=== PATIENT | female | born 1995 | race Caucasian/White ===

== ENCOUNTER 2016-08-13 14:23 | Emergency (ER) | payer MEDICAID, OTHER ==
[2016-08-13 16:22] VITALS: BP 124/87
[2016-08-13 17:08] LABS: Urine Bilirubin Negative (Negative); Urine Glucose Negative (Negative); Urine Nitrite Negative (Negative)
--- NOTE | 2016-08-13 18:49 | ED ---
Etienne Brown Matthew, scribed for Teodoro Metzger MD on 08/13/16 at 1643 . Influenza-Like Illness - HPI Summary HPI Summary: A 21 y/o female presents to the ED with fever since 08/10 that has resolved with rest and fluids. Her fever reached a height of 103F and her temperature is currently 99.0. Her last recorded fever was yesterday. Associated symptoms include sore throat, rhinorrhea, and productive cough. The patient denies nausea , vomiting, abdominal pain, abdominal cramping, vaginal bleeding, and vaginal discharge. The patient was advised by Dr. Newell's office to be evaluate at the ED, because of her fever. PMHx includes asthma and vasovagal syncope. The patient does not know her FHx. A2. She also states that baby has been moving normally. - History of Current Complaint Chief Complaint: EDFever Time Seen by Provider: 08/13/16 16:13 Hx Obtained From: Patient Onset/Duration: Lasting Days, Still Present - resolving Severity: Mild Associated Signs & Symptoms: T Max - 103F, Cough - productive, Sore Throat, Nasal Congestion - Allergy/Home Medications Allergies/Adverse Reactions: Allergies Allergy/AdvReac Type Severity Reaction Status Date / Time Bee Pollen Allergy Anaphylatic Verified 08/13/16 16:51 Shock PMH/Surg Hx/FS Hx/Imm Hx Endocrine/Hematology History: Denies: Hx Diabetes Respiratory History: Reports: Hx Asthma Infectious Disease History: No Infectious Disease History: Denies: Traveled Outside the [place] in Last 30 Days - Family History Family History: The patient does know her family Hx, because her father was adopted and she's estranged from her mother - Social History Alcohol Use: None Hx Substance Use: No Substance Use Type: Reports: None Hx Tobacco Use: Yes Smoking Status (MU): Former Smoker Review of Systems Constitutional: Negative Negative: Fever Eyes: Negative Positive: Sore Throat, Nasal Discharge Cardiovascular: Negative Positive: Cough - productive Gastrointestinal: Negative Negative: Abdominal Pain, Vomiting, Nausea Genitourinary: Negative Musculoskeletal: Negative Skin: Negative Neurological: Negative Psychological: Normal All Other Systems Reviewed And Are Negative: Yes Physical Exam - Summary Physical Exam Summary: Vital signs: Reviewed Gen.: Patient is a well-developed and nourished female in no acute distress. Patient is lying comfortably on the stretcher. Head: Normacephalic and atraumatic Eyes: PERRLA, EOMI x2. Ears: Right and Left ear canal and TM WNL Nose and mouth: positive nasal mucosa erythema, No pharyngeal erythema or exudates. Neck: Supple, no lymphadenopathy, no JVD Lungs: CTA B/L CVS: S1 & S2 present. No murmurs appreciated. ABDOMEN: Soft, non-tender. Positive distention secondary to her . No rebound no guarding, and no masses palpated. Bowel sounds are normal. EXTREMITIES: FROM in all major joints, no edema, no cyanosis or clubbing. NEURO: Alert and oriented x 3. No acute neurological deficits. Speech is normal and follows commands. SKIN: Dry and warm Triage Information Reviewed: Yes Vital Signs On Initial Exam: Initial Vitals Temp Pulse Resp BP Pulse Ox 99.9 F 105 20 128/72 100 08/13/16 14:36 08/13/16 14:36 08/13/16 14:36 08/13/16 14:36 08/13/16 14:36 Vital Signs Reviewed: Yes Diagnostics - Vital Signs Vital Signs Temp Pulse Resp BP Pulse Ox 08/13/16 16:14 98.4 F 100 16 124/87 98 08/13/16 15:24 99.6 F 105 20 122/78 100 08/13/16 14:36 99.9 F 105 20 128/72 100 - Laboratory Lab Statement: Any lab studies that have been ordered have been reviewed, and results considered in the medical decision making process. Flu Symptom Course/Dx - Course Assessment/Plan: A 21 y/o female presents to the ED with fever since 08/10 that has resolved with rest and fluids. Her fever reached a height of 103F and her temperature is currently 99.0. Her last recorded fever was yesterday. Associated symptoms include sore throat, rhinorrhea, and productive cough. The patient denies nausea, vomiting, abdominal pain, abdominal cramping, vaginal bleeding, and vaginal discharge. The patient was advised by Dr. Newell's office to be evaluate at the ED, because of her fever. PMHx includes asthma and vasovagal syncope. The patient does not know her FHx. A2. She also states that baby has been moving normally. Urinalysis is negative. Influenza A is negative. Influenza B positive. STREP is negative. Therefore, this is probably the reason the patient has been having fevers. However, the patient reports that she is feeling much improved, her last fever was a day ago, and she has no other complaints. She feels that the baby is moving as usual. The HR is 157 bpm. Since the symptoms are more than 5 days and shes feeling better the patient will only benefit from better hydration. She will follow-up with her PCP and SCREEN PR[employer] Dr. Newell. I discussed all the findings and test results with the patient. Patient was instructed to return to the emergency room immediately if any of the symptoms return or worsens. Plan of care was discussed with the patient and understands and agrees. All questions were answered at patient satisfaction. There were no further complaints or concerns. Lung exam before discharge: CTA B/L. Good air exchange. No wheezing or crackles heard. CVS: S1 and S2 present. No murmurs appreciated. Patient is alert and oriented x 3. Patient is hemodynamically stable. Patient will be discharged home with follow up PCP in the next 2-3 days - Diagnoses Differential Diagnosis/HQI/PQRI: Positive: Influenza, Upper Respiratory Infection Provider Diagnoses: Influenza B Discharge - Discharge Plan Condition: Stable Disposition: HOME Patient Education Materials: Influenza (ED) Referrals: Maru Myers CNM [Primary Care Provider] - 3 Days Adolfo Newell MD [Medical Doctor] - 3 Days Additional Instructions: Please follow-up with your primary care physician and Dr. Newell. Please hydrate well. The documentation as recorded by the Etienne shah Matthew accurately reflects the service I personally performed and the decisions made by me, Teodoro Metzger MD.
== END 2016-08-13 18:01 | disposition home or self-care (01) ==
LOC: ED 14:23
DX: O98.519 Other viral diseases complicating pregnancy, unspecified trimester (principal); J10.1 Influenza due to other identified influenza virus with other respiratory manifestations; J45.909 Unspecified asthma, uncomplicated
CPT/HCPCS: 81003; 87502; 87651; 99282

== ENCOUNTER 2016-11-05 01:04 | Inpatient (IN) | payer OTHER ==
[2016-11-05] MEDS ORDERED: Witch Hazel PAD* JAR TOPICAL PRN (02:39)
[2016-11-05] MEDS ORDERED: Glycerin ADULT SUPP PR PRN (02:39)
[2016-11-05] MEDS ORDERED: OXYTOCIN* 10 UNITS/ML 1 ML VIAL IM ONE (02:39)
[2016-11-05] MEDS ORDERED: Acetaminophen TAB* 325 MG PO PRN (02:39)
[2016-11-05] MEDS ORDERED: Dibucaine 1% 28.35 GM TUBE PR PRN (02:39)
[2016-11-05] MEDS: Docusate CAP* 100 MG PO SCH ×3 (08:27→22:02)
[2016-11-05] MEDS: Ibuprofen TAB* 600 MG PO PRN ×3 (08:27→22:02)
[2016-11-05] MEDS ORDERED: Simethicone CHEW TAB* 80 MG PO SCH (08:30)
[2016-11-05] MEDS ORDERED: Varicella Virus Vaccine Live* 0.5 ML VIAL SUBCUT ONE (09:00)
[2016-11-05] MEDS ORDERED: RHO D Immune Globulin (HUMAN)* 300 MCG = 1,500 I.U. INJ IM ONE (15:55)
[2016-11-06 08:59] LABS: Hematocrit 33 % (35-47); Hemoglobin 11.4 g/dl (12.0-16.0); Mean Corpuscular HGB Conc 34 g/dl (31-36); Mean Corpuscular Hemoglobin 31 pg (27-31); Mean Corpuscular Volume 91 fL (80-97); Mean Platelet Volume 8 um3 (7.4-10.4); Red Blood Count 3.67 10^6/ul (4.0-5.4); Red Cell Distribution Width 15 % (10.5-15); White Blood Count 12.6 10^3/ul (3.5-10.8)
[2016-11-06] MEDS ORDERED: Ferrous Gluconate TAB* 324 MG TAB PO SCH (09:00)
[2016-11-06] MEDS: Docusate CAP* 100 MG PO SCH ×2 (09:19→16:41)
--- NOTE | 2016-11-06 14:29 | PTEDU ---
Patient Name: KILEY CASTREJON KILEY CASTREJON selected video: Follow Me Mum: [employer] to view on 11/07/19 17 at 2:29:06 PM from [id number]
[2016-11-07] MEDS: Docusate CAP* 100 MG PO SCH (02:25)
[2016-11-07 07:48] VITALS: BP 128/66
[2016-11-07] MEDS: Ibuprofen TAB* 600 MG PO PRN (08:01)
== END 2016-11-07 12:17 | disposition home or self-care (01) | DRG 560 ==
LOC: MCHOBOUT 01:04 → MCHOB 01:20
PROVIDERS: ADMIT Midwife; ATTEND Midwife
PROC: 10E0XZZ Delivery of Products of Conception, External Approach (ICD-10-PCS; principal; 2016-11-05)
PROC: 10907ZC Drainage of Amniotic Fluid, Therapeutic from Products of Conception, Via Natural or Artificial Opening (ICD-10-PCS; 2016-11-05)
DX: O42.02 Full-term premature rupture of membranes, onset of labor within 24 hours of rupture (principal); O99.344 Other mental disorders complicating childbirth; F32.9 Major depressive disorder, single episode, unspecified; F43.10 Post-traumatic stress disorder, unspecified; O26.893 Other specified pregnancy related conditions, third trimester; Z67.91 Unspecified blood type, Rh negative; Z3A.38 38 weeks gestation of pregnancy; Z37.0 Single live birth
CPT/HCPCS: 36415; 85025; 85461; 86900; 86901; A9270-GY; J2590; J2790

== ENCOUNTER 2017-12-14 13:53 | Emergency (ER) | payer OTHER ==
[2017-12-14 13:58] VITALS: BP 123/79
== END 2017-12-14 17:28 | disposition left against medical advice (07) ==
LOC: ED 13:53
DX: R10.2 Pelvic and perineal pain (principal); Z53.21 Procedure and treatment not carried out due to patient leaving prior to being seen by health care provider

== ENCOUNTER 2018-04-03 11:42 | Inpatient (IN) | payer OTHER ==
--- NOTE | 2018-04-03 11:55 | ED ---
Psychiatric Complaint - HPI Summary HPI Summary: Pt is a 22 year old F presenting to the ED brought in by EMS with suicidal thoughts. The past couple of days her depression has been worse than normal and she was just thinking about ending the way she was feeling. She was agitated and irritable being in public, thought about walking into traffic, and called 911 instead. She has a hx of suicide and depression in her family, personal hx of suicidal attempts and anxiety, does not use alcohol, occasionally uses marijuana and cigars. The pt does not sleep well or eat well, is not on any medicine and her last suicide attempt was 2014. - History Of Current Complaint Time Seen by Provider: 04/03/18 11:43 Hx Obtained From: Patient Onset/Duration: Gradual Onset, Lasting Days, Still Present Timing: Constant Severity Initially: Moderate Severity Currently: Moderate Character: Depressed, Anxious, Frustrated Aggravating Factor(s): Recent Stress Alleviating Factor(s): Nothing Associated Signs And Symptoms: Positive: Sleep Disturbance, Appetite Change Related History: Positive For: Prior Psychiatric Issues Has Suicidal: Reports: Thoughts, Has Prior Attempt(s) - Allergies/Home Medications Allergies/Adverse Reactions: Allergies Allergy/AdvReac Type Severity Reaction Status Date / Time bee venom protein (honey bee) Allergy Anaphylatic Verified 12/14/17 13:59 Shock PMH/Surg Hx/FS Hx/Imm Hx Previously Healthy: No Endocrine/Hematology History: Denies: Hx Diabetes Respiratory History: Reports: Hx Asthma Psychiatric History: Reports: Hx Anxiety, Hx Depression, Hx Suicide Attempt - attempted suicide 6mths with first child. Child not in custody., Other Psychiatric Issues/Disorders - PTSD - Family History Known Family History: Positive: Other - suicide, depression - Social History Alcohol Use: None Hx Substance Use: No Substance Use Type: Reports: None Hx Tobacco Use: Yes Smoking Status (MU): Former Smoker Have You Smoked in the Last Year: No Review of Systems Negative: Fever Positive: Anxious, Depressed All Other Systems Reviewed And Are Negative: Yes Physical Exam - Summary Physical Exam Summary: VITAL SIGNS: Reviewed. GENERAL: Patient is a well-developed and nourished female who is lying comfortable in the stretcher. Patient is not in any acute respiratory distress. HEAD AND FACE: No signs of trauma. No ecchymosis, hematomas or skull depressions. No sinus tenderness. EYES: PERRLA, EOMI x 2, No injected conjunctiva, no nystagmus. EARS: Hearing grossly intact. Ear canals and tympanic membranes are within normal limits. MOUTH: Oropharynx within normal limits. NECK: Supple, trachea is midline, no adenopathy, no JVD, no carotid bruit, no c- spine tenderness, neck with full ROM. CHEST: Symmetric, no tenderness at palpation LUNGS: Clear to auscultation bilaterally. No wheezing or crackles. CVS: Regular rate and rhythm, S1 and S2 present, no murmurs or gallops appreciated. ABDOMEN: Soft, non-tender. No signs of distention. No rebound no guarding, and no masses palpated. Bowel sounds are normal. EXTREMITIES: FROM in all major joints, no edema, no cyanosis or clubbing. NEURO: Alert and oriented x 3. No acute neurological deficits. Speech is normal and follows commands. SKIN: Dry and warm Triage Information Reviewed: Yes Vital Signs Reviewed: Yes Diagnostics - Laboratory Result Diagrams: 04/03/18 12:49 04/03/18 12:49 Lab Statement: Any lab studies that have been ordered have been reviewed, and results considered in the medical decision making process. Course/Dx - Course Assessment/Plan: Pt is a 22 year old F presenting to the ED brought in by EMS with suicidal thoughts. The past couple of days her depression has been worse than normal and she was just thinking about ending the way she was feeling. She was agitated and irritable being in public, thought about walking into traffic, and called 911 instead. She has a hx of suicide and depression in her family, personal hx of suicidal attempts and anxiety, does not use alcohol, occasionally uses marijuana and cigars. The pt does not sleep well or eat well, is not on any medicine and her last suicide attempt was 2014. Blood work w/o a significant abnormality. She is medically cleared. She is awaiting for a MHE. Patient is hemodynamically stable and A+O x 3. Dr. Owens assessed the patient and he recommends admission to his services. Diagnosis of depressive disorder. - Differential Dx/Clinical Impression Provider Diagnosis: Depressive disorder Discharge - Sign-Out/Discharge Documenting (check all that apply): Patient Departure - admit - Discharge Plan Condition: Stable - Billing Disposition and Condition Condition: STABLE Disposition: Admitted to [facility] - Attestation Statements Document Initiated by Scribe: Yes Documenting Scribe: Joie Bryant Provider For Whom Scribe is Documenting (Include Credential): Teodoro Metzger MD. Scribe Attestation: IJoie, scribed for Teodoro Metzger MD. on 04/04/18 at 0738. Scribe Documentation Reviewed: Yes Provider Attestation: The documentation as recorded by the meetaibe, Joie Bryant accurately reflects the service I personally performed and the decisions made by me, Teodoro Metzger MD. Status of Scribe Document: Viewed Consult Consult: [id number] - The pt's condition was reviewed and she will be admitted to [facility] under Dr. Owens with a diagnosis of depressive disorder.
[2018-04-03 13:01] LABS: ABS Basophils 0 10^3/ul (0-0.2); ABS Eosinophils 0.2 10^3/ul (0-0.6); ABS Lymphocytes 1.5 10^3/ul (1.0-4.8); ABS Monocytes 0.4 10^3/ul (0-0.8); ABS Neutrophils 2.8 10^3/ul (1.5-7.7); ABS Nucleated RBC 0 10^3/ul; Hematocrit 38 % (35-47); Lymphocyte % 30.1 %; Mean Corpuscular HGB Conc 34 g/dl (31-36); Mean Corpuscular Hemoglobin 29 pg (27-31); Mean Corpuscular Volume 86 fL (80-97); Mean Platelet Volume 8.2 fL (7.4-10.4); Nucleated Red Blood Cells % 0; Platelet Count 199 10^3/ul (150-450); Red Blood Count 4.47 10^6/ul (4.00-5.40); Red Cell Distribution Width 13 % (10.5-15)
[2018-04-03 13:19] LABS: EGFR Non-African American 78.6 (>60)
[2018-04-03 13:35] LABS: Urine Appearance Cloudy; Urine Blood 3+ (Negative); Urine Color Amber; Urine Ketones Trace (Negative); Urine Protein 2+(100 mg/dL) (Negative); Urine Red Blood Cell 3+(>10/hpf) (Absent); Urine Specific Gravity 1.021 (1.010-1.030); Urine Urobilinogen Negative (Negative); Urine White Blood Cell 3+(>20/hpf) (Absent)
[2018-04-04] MEDS ORDERED: Al Hydrox/Mg Hydrox/Simet LIQ* 30 ML UDC PO PRN (10:10)
[2018-04-04] MEDS ORDERED: Acetaminophen TAB* 325 MG PO PRN (10:10)
[2018-04-04] MEDS ORDERED: cloNIDine TAB* 0.1 MG PO SCH (21:00)
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
[2018-04-05] MEDS: Vitamin THERAPEUTIC TAB PO SCH (08:24)
[2018-04-05] MEDS: FLUoxetine CAP* 20 MG PO SCH (08:24)
[2018-04-05] MEDS ORDERED: Sertraline* 50 MG TAB PO SCH (09:00)
[2018-04-05] MEDS ORDERED: Mouth Piece, Nicotine* 1 EACH CARTRIDGE INH ONE (12:00)
[2018-04-06] MEDS: LORazepam TAB(*) 0.5 MG PO PRN ×2 (02:11→17:57)
[2018-04-06] MEDS: Vitamin THERAPEUTIC TAB PO SCH (08:16)
[2018-04-06] MEDS: FLUoxetine CAP* 20 MG PO SCH (08:16)
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
[2018-04-06] MEDS ORDERED: diPHENhydraMINE PO* 50 MG ONE (23:04)
[2018-04-07] MEDS: Vitamin THERAPEUTIC TAB PO SCH (10:05)
[2018-04-07] MEDS: FLUoxetine CAP* 20 MG PO SCH (10:05)
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
[2018-04-07] MEDS: diPHENhydraMINE PO* 50 MG PO PRN (21:00)
[2018-04-08] MEDS: Vitamin THERAPEUTIC TAB PO SCH (09:05)
[2018-04-08] MEDS: FLUoxetine CAP* 20 MG PO SCH (09:05)
[2018-04-08] MEDS: LORazepam TAB(*) 0.5 MG PO PRN ×2 (09:05→20:36)
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
[2018-04-09] MEDS: FLUoxetine CAP* 20 MG PO SCH (09:07)
[2018-04-09] MEDS: Vitamin THERAPEUTIC TAB PO SCH (09:07)
[2018-04-09] MEDS: Nicotine Inhaler* 10 MG AMP INH PRN (20:01)
[2018-04-09] MEDS: LORazepam TAB(*) 0.5 MG PO PRN (20:22)
[2018-04-10] MEDS: LORazepam TAB(*) 0.5 MG PO PRN ×3 (02:35→19:54)
[2018-04-10] MEDS: Vitamin THERAPEUTIC TAB PO SCH (08:25)
[2018-04-10] MEDS: FLUoxetine CAP* 20 MG PO SCH (08:25)
[2018-04-10] MEDS: Nicotine Inhaler* 10 MG AMP INH PRN ×2 (12:52→16:19)
--- NOTE | 2018-04-10 15:04 | PN ---
Subjective - Subjective Date of Service: 04/10/18 Subjective: Met with Kiley who was found in [place] playing board games with peers. Kiley reports feeling "great" happy that she is being discharged sooner. States that she hopes for discharge early in the week but knows that housing needs to be in place. She is not reporting any suicidal ideation. States that she has maxed out on groups and doesn't feel that any more group therapy will help, as she is able to utilize coping skills effective. Mcgehee that the Prozac was making her feel calmer, reports feeling nauseous at times but states it is unrelated to Prozac. She feels that this is due to anxiety, which causes her nausea. She is not concerned about this. Although housing is still up in the air, she is not concerned and feels that she has many supports for finding housing, as well as, feels comforted that she has "outside supports to help me transition." Objective - Appearance Appearance: Well Developed/Nourished, Healthy Appearing Dysmorphic Features: No Hygiene: Normal Grooming: Well Kept - Behavior Psychomotor Activities: Normal Exhibits Abnormal Movement: No - Attitude and Relatedness Attitude and Relatedness: Appropriate Eye Contact: Good - Speech Quality: Unpressured Latencies: Normal Quantity: Appropriate - Mood Patient's Decription of Mood: "Great" - Affect Observed Affect: Expansive Affect Consistent with: Euthymia - Thought Process Patient's Thought Process: Coherent Thought Content: No Passive Wish, No Suicidal Planning, No Homicidal Ideation, No Paranoid Ideation - Sensorium Experiencing Hallucinations: No, Sensorium is Clear Type of Hallucinations: Visual: No, Auditory: No, Command: No - Level of Consciousness Level of Consciousness: Alert Orientation: Yes Intact, Yes Orientated to Time, Yes Orientated to Place, Yes Orientated to Person - Impulse Control Impulse Control: Intact - Insight and Judgement Insight and Judgement: Good Assessment - Assessment Inpatient DSM-V Dx: F43.11 Clinical Impression: Kiley is reporting no suicidal ideation, is encouraged that she may be getting discharged in a few days, reports no side effect of introduction of Prozac states "I feel slightly calmer with the Prozac." She had minimal complaints of nausea but relates that to anxiety on the unit. Observed with a bright mood and affect during interview, was calm, engaging and conversant, smiling upon approach. She was future-oriented and demonstrated good judgment and insight with regards to long-term goals, able to break those down into small manageable steps for herself. Patient is hopeful for discharge early this week. Plan - Plan Treatment Plan: Name: KILEY CASTREJON Birthdate: 1995 [id number] Medications: Current Medications Acetaminophen (Tylenol Tab*) 650 mg PO Q4H PRN PRN Reason: PAIN or TEMP > 101 F Last Admin: 04/04/18 23:15 Dose: 650 mg Al Hydrox/Mg Hydrox/Simethicone (Maalox Plus*) 30 ml PO Q4H PRN PRN Reason: INDIGESTION Diphenhydramine HCl (Benadryl Po*) 50 mg PO Q6H PRN PRN Reason: AGITATION, INSOMNIA Last Admin: 04/07/18 21:00 Dose: 50 mg Fluoxetine HCl (Prozac Cap*) 20 mg PO DAILY [facility] Last Admin: 04/10/18 08:25 Dose: 20 mg Lorazepam (Ativan Tab(*)) 0.5 mg PO Q4H PRN PRN Reason: Anxiety/insomnia Last Admin: 04/10/18 13:19 Dose: 0.5 mg Multivitamins (Theragran Tab*) 1 tab PO DAILY [facility] Last Admin: 04/10/18 08:25 Dose: 1 tab Nicotine (Nicotine Inhaler*) 10 mg INH Q2H PRN PRN Reason: CRAVING Last Admin: 04/10/18 12:52 Dose: 10 mg - Discharge Plan Discharge Plan: Outpatient Follow Up Outpatient Program: [facility]
[2018-04-10] MEDS: diPHENhydraMINE PO* 50 MG PO PRN (21:39)
[2018-04-11] MEDS: LORazepam TAB(*) 0.5 MG PO PRN ×2 (05:05→12:01)
[2018-04-11] MEDS: diPHENhydraMINE PO* 50 MG PO PRN (05:05)
[2018-04-11] MEDS: FLUoxetine CAP* 20 MG PO SCH (08:10)
[2018-04-11] MEDS: Vitamin THERAPEUTIC TAB PO SCH (08:10)
[2018-04-11 08:52] VITALS: BP 114/79
[2018-04-11] MEDS: Nicotine Inhaler* 10 MG AMP INH PRN (12:31)
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
== END 2018-04-11 15:35 | disposition home or self-care (01) | DRG 755 ==
LOC: ED 11:42 → BSU 22:05
PROVIDERS: ADMIT Psychiatry & Neurology Psychiatry; ATTEND Psychiatry & Neurology Psychiatry
PROC: GZHZZZZ Group Psychotherapy (ICD-10-PCS; principal; 2018-04-06)
DX: F43.11 Post-traumatic stress disorder, acute (principal); R45.851 Suicidal ideations; F41.1 Generalized anxiety disorder; F32.9 Major depressive disorder, single episode, unspecified; F17.200 Nicotine dependence, unspecified, uncomplicated; J45.909 Unspecified asthma, uncomplicated; Z62.810 Personal history of physical and sexual abuse in childhood; F34.1 Dysthymic disorder; Z91.030 Bee allergy status; Z91.5 Personal history of self-harm; Z81.8 Family history of other mental and behavioral disorders; Z81.1 Family history of alcohol abuse and dependence
CPT/HCPCS: 36415; 80053; 80061; 80307; 80320; 80329; 81003; 81015; 83036; 84443; 85025; 87086; 90853; 99222; 99231; 99232; 99238; 99285; A9270-GY; G0480

== ENCOUNTER 2018-04-27 20:38 | Inpatient (IN) | payer OTHER ==
[2018-04-27 21:26] LABS: Urine Appearance Cloudy; Urine Bilirubin Negative (Negative); Urine Blood Negative (Negative); Urine Color Yellow; Urine Glucose Negative (Negative); Urine Ketones Negative (Negative); Urine Nitrite Negative (Negative); Urine Protein Negative (Negative); Urine Specific Gravity 1.027 (1.010-1.030); Urine Urobilinogen Negative (Negative)
[2018-04-27 21:30] LABS: ABS Basophils 0 10^3/ul (0-0.2); ABS Eosinophils 0.1 10^3/ul (0-0.6); ABS Lymphocytes 1.3 10^3/ul (1.0-4.8); ABS Monocytes 0.4 10^3/ul (0-0.8); ABS Neutrophils 3.8 10^3/ul (1.5-7.7); ABS Nucleated RBC 0 10^3/ul; Hematocrit 42 % (35-47); Hemoglobin 14.4 g/dl (12.0-16.0); Mean Corpuscular HGB Conc 34 g/dl (31-36); Mean Corpuscular Hemoglobin 29 pg (27-31); Mean Corpuscular Volume 85 fL (80-97); Mean Platelet Volume 8.1 fL (7.4-10.4); Nucleated Red Blood Cells % 0; Platelet Count 245 10^3/ul (150-450); Red Blood Count 4.95 10^6/ul (4.00-5.40); Red Cell Distribution Width 13 % (10.5-15); White Blood Count 5.6 10^3/ul (3.5-10.8)
--- NOTE | 2018-04-27 21:30 | ED ---
Psychiatric Complaint - HPI Summary HPI Summary: This patient is a 22 year old F presenting to [facility] with a chief complaint of SI. The patient has had SI since a previous visit 14 days ago. She states it could be due to her medication but is unsure why she is currently having many ideations. The patient is currently homeless and was most recently staying at the [facility] through the [facility] [place]. - History Of Current Complaint Chief Complaint: EDMentalHealth Time Seen by Provider: 04/27/18 20:48 Hx Obtained From: Patient Onset/Duration: Lasting Weeks Timing: Constant Character: Depressed Related History: Positive For: Prior Psychiatric Issues Has Suicidal: Reports: Thoughts - Allergies/Home Medications Allergies/Adverse Reactions: Allergies Allergy/AdvReac Type Severity Reaction Status Date / Time bee venom protein (honey bee) Allergy Anaphylatic Verified 04/27/18 20:44 Shock PMH/Surg Hx/FS Hx/Imm Hx Endocrine/Hematology History: Denies: Hx Diabetes Respiratory History: Reports: Hx Asthma Sensory History: Denies: Hx Contacts or Glasses, Hx Hearing Aid Opthamlomology History: Denies: Hx Contacts or Glasses Psychiatric History: Reports: Hx Anxiety, Hx Depression, Hx Suicide Attempt - attempted suicide 6mths with first child. Child not in custody., Other Psychiatric Issues/Disorders - PTSD Denies: Hx Eating Disorder, Hx of Violent Episodes Against Others Infectious Disease History: No Infectious Disease History: Denies: Traveled Outside the [place] in Last 30 Days - Family History Known Family History: Positive: Other - suicide, depression - Social History Alcohol Use: Occasionally Hx Substance Use: No Substance Use Type: Reports: Marijuana Hx Tobacco Use: Yes Smoking Status (MU): Former Smoker Type: Cigars Have You Smoked in the Last Year: No Review of Systems Negative: Fever Positive: Depressed All Other Systems Reviewed And Are Negative: Yes Physical Exam - Summary Physical Exam Summary: VITAL SIGNS: Reviewed. GENERAL: Patient is a well-developed and nourished FEMALE who is lying comfortable in the stretcher. Patient is not in any acute respiratory distress. HEAD AND FACE: No signs of trauma. No ecchymosis, hematomas or skull depressions. No sinus tenderness. EYES: PERRLA, EOMI x 2, No injected conjunctiva, no nystagmus. EARS: Hearing grossly intact. Ear canals and tympanic membranes are within normal limits. MOUTH: Oropharynx within normal limits. NECK: Supple, trachea is midline, no adenopathy, no JVD, no carotid bruit, no c- spine tenderness, neck with full ROM. CHEST: Symmetric, no tenderness at palpation LUNGS: Clear to auscultation bilaterally. No wheezing or crackles. CVS: Regular rate and rhythm, S1 and S2 present, no murmurs or gallops appreciated. ABDOMEN: Soft, non-tender. No signs of distention. No rebound no guarding, and no masses palpated. Bowel sounds are normal. EXTREMITIES: FROM in all major joints, no edema, no cyanosis or clubbing. NEURO: Alert and oriented x 3. No acute neurological deficits. Speech is normal and follows commands. SKIN: Dry and warm Triage Information Reviewed: Yes Vital Signs On Initial Exam: Initial Vitals Temp Pulse Resp BP Pulse Ox 98.6 F 72 16 114/75 100 04/27/18 20:40 04/27/18 20:40 04/27/18 20:40 04/27/18 20:40 04/27/18 20:40 Vital Signs Reviewed: Yes Diagnostics - Vital Signs Vital Signs Temp Pulse Resp BP Pulse Ox 04/27/18 20:40 98.6 F 72 16 114/75 100 - Laboratory Lab Results: Lab Results 04/27/18 Range/Units 21:10 Urine Color Yellow Urine Appearance Cloudy Urine pH 5.0 (5-9) Ur Specific [place] 1.027 (1.010-1.030) Urine Protein Negative (Negative) Urine Ketones Negative (Negative) Urine Blood Negative (Negative) Urine Nitrate Negative (Negative) Urine Bilirubin Negative (Negative) Urine Urobilinogen Negative (Negative) Ur Leukocyte Esterase Negative (Negative) Urine Glucose Negative (Negative) Urine Ascorbic Acid * A (Negative) Result Diagrams: 04/27/18 21:22 04/27/18 21:22 Lab Statement: Any lab studies that have been ordered have been reviewed, and results considered in the medical decision making process. Course/Dx - Course Course Of Treatment: This patient is a 22 year old F presenting to [facility] with a chief complaint of SI. Patient medically cleared at 2200. Harpal diagnosed her with major depressive disorder. She will voluntarily be admitted per Dr. Mario GARCIA. - Differential Dx/Clinical Impression Provider Diagnosis: Major depressive disorder Discharge - Sign-Out/Discharge Documenting (check all that apply): Patient Departure - Admission, per [facility] - Discharge Plan Referrals: Mason Roper MD [Primary Care Provider] - - Attestation Statements Document Initiated by Luchoibe: Yes Documenting Scribe: Kj Ashraf Provider For Whom Eulalia is Documenting (Include Credential): Natali Post MD Scribe Attestation: IKj, scribed for Natali Post MD on 04/28/18 at 0006. Status of Scribe Document: Ready
[2018-04-27 21:47] LABS: ALT 11 U/L (7-52); AST 15 U/L (13-39); Albumin 4.6 g/dL (3.2-5.2); Albumin/Globulin Ratio 1.7 (1-3); Alkaline Phosphatase 60 U/L (34-104); Anion Gap 6 mmol/L (2-11); BUN/Creatinine Ratio 17.4 (8-20); Blood Urea Nitrogen 15 mg/dL (6-24); CO2 Carbon Dioxide 25 mmol/L (22-32); Calcium 9.3 mg/dL (8.6-10.3); Chloride 105 mmol/L (101-111); EGFR Non-African American 81.8 (>60); Globulin 2.7 g/dL (2-4); Glucose 110 mg/dL (70-100); Potassium 4.4 mmol/L (3.5-5.0); Sodium 136 mmol/L (135-145); Total Protein 7.3 g/dL (6.4-8.9)
[2018-04-27 21:48] LABS: Barbiturates Urine Screen None Detected (None Detect); Benzodiazepine Urine Screen None Detected (None Detect); Urine Cannabinoids Screen None Detected (None Detect)
[2018-04-27 21:54] LABS: HCG Pregnancy < 0.60 mIU/mL
[2018-04-27 21:57] LABS: Acetaminophen < 15 mcg/mL; Alcohol < 10 mg/dL (<10); Salicylate < 2.50 mg/dL (<30)
[2018-04-27 22:11] LABS: TSH (Thyroid Stimulating Horm) 1.42 mcIU/mL (0.34-5.60)
[2018-04-28] MEDS ORDERED: Nicotine GUM* 2 MG PO PRN (02:34)
[2018-04-28] MEDS ORDERED: Al Hydrox/Mg Hydrox/Simet LIQ* 30 ML UDC PO PRN (02:34)
[2018-04-28] MEDS ORDERED: LORazepam TAB(*) 0.5 MG PO PRN (02:35)
[2018-04-28] MEDS ORDERED: Mouth Piece, Nicotine* 1 EACH CARTRIDGE INH ONE (03:00)
[2018-04-28] MEDS: Vitamin THERAPEUTIC TAB PO SCH (08:41)
[2018-04-28] MEDS ORDERED: FLUoxetine CAP* 20 MG PO SCH (09:00)
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
[2018-04-28] MEDS: Prazosin CAP* 1 MG PO SCH (21:36)
[2018-04-29] MEDS: LORazepam TAB(*) 0.5 MG PO PRN ×2 (03:20→12:33)
[2018-04-29] MEDS: Vitamin THERAPEUTIC TAB PO SCH (08:28)
[2018-04-29] MEDS: FLUoxetine CAP* 20 MG PO SCH (08:28)
[2018-04-29] MEDS: Prazosin CAP* 1 MG PO SCH ×2 (08:28→21:24)
[2018-04-29] MEDS: Nicotine Inhaler* 10 MG AMP INH PRN (12:34)
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
[2018-04-30] MEDS: LORazepam TAB(*) 1 MG PO PRN ×3 (01:23→23:15)
[2018-04-30] MEDS: Vitamin THERAPEUTIC TAB PO SCH (10:47)
[2018-04-30] MEDS: FLUoxetine CAP* 20 MG PO SCH (10:47)
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
[2018-04-30] MEDS: Prazosin CAP* 1 MG PO SCH (21:36)
[2018-05-01] MEDS: Nicotine Inhaler* 10 MG AMP INH PRN ×2 (00:09→11:07)
[2018-05-01] MEDS: Vitamin THERAPEUTIC TAB PO SCH (09:47)
[2018-05-01] MEDS: FLUoxetine CAP* 20 MG PO SCH (09:47)
[2018-05-01] MEDS: LORazepam TAB(*) 1 MG PO PRN (09:47)
[2018-05-01] MEDS: Prazosin CAP* 1 MG PO SCH (21:51)
[2018-05-02] MEDS: Nicotine Inhaler* 10 MG AMP INH PRN ×3 (05:48→13:01)
[2018-05-02] MEDS: LORazepam TAB(*) 1 MG PO PRN ×3 (07:33→22:18)
[2018-05-02] MEDS: FLUoxetine CAP* 20 MG PO SCH (09:49)
[2018-05-02] MEDS: Vitamin THERAPEUTIC TAB PO SCH (09:49)
[2018-05-02] MEDS: Acetaminophen TAB* 325 MG PO PRN (14:39)
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
[2018-05-02] MEDS: Prazosin CAP* 1 MG PO SCH (22:23)
[2018-05-03] MEDS: LORazepam TAB(*) 1 MG PO PRN ×2 (05:45→12:05)
[2018-05-03] MEDS: Nicotine Inhaler* 10 MG AMP INH PRN ×2 (05:45→15:10)
[2018-05-03] MEDS: FLUoxetine CAP* 20 MG PO SCH (10:58)
[2018-05-03] MEDS: Vitamin THERAPEUTIC TAB PO SCH (10:58)
[2018-05-03] MEDS: Acetaminophen TAB* 325 MG PO PRN (12:05)
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
[2018-05-03] MEDS: Prazosin CAP* 1 MG PO SCH (22:07)
[2018-05-04] MEDS: LORazepam TAB(*) 1 MG PO PRN ×2 (04:25→11:16)
[2018-05-04] MEDS: FLUoxetine CAP* 20 MG PO SCH (09:29)
[2018-05-04] MEDS: Vitamin THERAPEUTIC TAB PO SCH (09:29)
[2018-05-04] MEDS: Nicotine Inhaler* 10 MG AMP INH PRN ×2 (11:16→14:14)
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
[2018-05-04] MEDS: Prazosin CAP* 1 MG PO SCH (21:12)
[2018-05-05] MEDS: LORazepam TAB(*) 1 MG PO PRN (05:50)
[2018-05-05 08:42] VITALS: BP 101/66
[2018-05-05] MEDS: FLUoxetine CAP* 20 MG PO SCH (09:03)
[2018-05-05] MEDS: Vitamin THERAPEUTIC TAB PO SCH (09:03)
[2018-05-05] MEDS: Nicotine Inhaler* 10 MG AMP INH PRN ×2 (09:05→12:47)
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
== END 2018-05-05 14:07 | disposition home or self-care (01) | DRG 755 ==
LOC: ED 20:38 → BSU 04-28 00:55
PROVIDERS: ADMIT Psychiatry & Neurology Psychiatry; ATTEND Psychiatry & Neurology Psychiatry
DX: F43.10 Post-traumatic stress disorder, unspecified (principal); R45.851 Suicidal ideations; F32.9 Major depressive disorder, single episode, unspecified; F60.3 Borderline personality disorder; F41.9 Anxiety disorder, unspecified; R42 Dizziness and giddiness; G47.53 Recurrent isolated sleep paralysis; Z91.411 Personal history of adult psychological abuse; Z81.1 Family history of alcohol abuse and dependence; Z81.8 Family history of other mental and behavioral disorders; Z59.0 Homelessness; Z91.410 Personal history of adult physical and sexual abuse; Z91.030 Bee allergy status; Z72.89 Other problems related to lifestyle; Z87.891 Personal history of nicotine dependence
CPT/HCPCS: 36415; 80053; 80307; 80320; 80329; 81003; 84443; 84702; 85025; 99284; A9270-GY; G0480